=== PATIENT | male | born 1930 | race Caucasian/White ===

== ENCOUNTER 2017-10-07 20:32 | Emergency (ER) | payer MEDICARE, OTHER ==
[2017-10-07 20:55] VITALS: BP 160/84
[2017-10-07] MEDS ORDERED: Sodium Chloride 0.9% 1,000 ML IV SCH (21:00)
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
--- NOTE | 2017-10-08 07:38 | CR ---
Chest: Portable view of the chest was obtained. Comparison: Prior chest x-ray of 12/06/15. Heart size appears within normal limits. Tortuous thoracic aorta is seen. Lung markings are increased which appear stable. No acute infiltrates are seen. Bony structures are osteopenic but grossly intact. Impression: 1. Nothing acute is identified. No significant change is seen from prior study. Diagnostic code #2
== END 2017-10-07 22:40 | disposition home or self-care (01) ==
LOC: JD.ED 20:32
DX: R55 Syncope and collapse (principal); I13.0 Hypertensive heart and chronic kidney disease with heart failure and stage 1 through stage 4 chronic kidney disease, or unspecified chronic kidney disease; E11.22 Type 2 diabetes mellitus with diabetic chronic kidney disease; N18.4 Chronic kidney disease, stage 4 (severe); I50.32 Chronic diastolic (congestive) heart failure; E83.42 Hypomagnesemia; Z79.4 Long term (current) use of insulin; Z79.82 Long term (current) use of aspirin; Z79.899 Other long term (current) drug therapy
CPT/HCPCS: 36415; 71010; 80053; 82962; 83735; 83880; 84443; 84484; 85025; 86140; 93005; 96360; 99284; J7040; 93010

== ENCOUNTER 2018-03-29 09:55 | Emergency (ER) | payer MEDICARE, OTHER ==
--- NOTE | 2018-03-29 10:58 | EDM.PDOC ---
ED HPI GENERAL MEDICAL PROBLEM - General Chief Complaint: ENT Problem Stated Complaint: NOSEBLEED Time Seen by Provider: 03/29/18 10:58 Source of Information: Reports: Patient, Family (spouse) History Limitations: Reports: No Limitations - History of Present Illness INITIAL COMMENTS - FREE TEXT/NARRATIVE: 87-year-old male presents the ED with a very active right-sided nosebleed. He states 2 days ago he had bleeding from the left side that lasted about 20 minutes but he was able to gain control of this with no further bleeding. The right side of the naris started bleeding about 0800 hrs. this morning and has been quite aggressive in spite of packing at home and nasal clamp. He's been clamped nasally here in the ED for half an hour in the bleeding is now come under control. 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 He is subsequently placed on c Coumadin because it is a titanium valve. Last PT/INR was a bit low on March 26. Coumadin dose was increased to 10 mg daily from 6 mg daily. He was spitting up blood this morning as was running down his throat but not at present. Onset: Today Onset Date: 03/29/18 Onset Time: 08:00 Duration: Minutes: Location: Reports: Face (Nosebleed right side) Quality: Reports: Other Severity: Moderate (Nosebleed right side) Improves with: Reports: Other (Has stopped with nasal clamp for 25 minutes.) Worsens with: Reports: None Context: Reports: Other (Spontaneous nosebleed since having valvular heart surgery 10 days ago. First bleeding was from the left side 2 days ago now from the right side this morning. Patient is on Coumadin and the dosages yet to be stabilized.). Denies: Activity, Exercise, Lifting, Sick Contact, Trauma Associated Symptoms: Denies: Confusion, Chest Pain, Cough, cough w sputum, Diaphoresis, Fever/Chills, Headaches, Loss of Appetite, Malaise, Nausea/Vomiting Treatments RUNNING RIGGER: Reports: Other (see below) (None.) - Related Data Allergies Allergy/AdvReac Type Severity Reaction Status Date / Time acetaminophen [From Percocet] AdvReac Other Verified 03/29/18 10:05 oxycodone [From Percocet] AdvReac Other Verified 03/29/18 10:05 Home Meds: Home Meds Levothyroxine 150 mcg PO DAILY 12/06/15 [History] Rosuvastatin [Crestor] 20 mg PO DAILY 12/06/15 [History] Magnesium Chloride [Slow-Mag] 71.5 mg PO DAILY #30 tablet. 10/07/17 [Rx] Clopidogrel [Plavix] 75 mg PO DAILY 03/29/18 [History] Finasteride 5 mg PO DAILY 03/29/18 [History] Furosemide [Lasix] 10 mg PO DAILY 03/29/18 [History] Insulin Glarg,Human.Rec.Analog [Lantus] 20 unit SUBCUT DAILY 03/29/18 [History] Multivitamin [Multivitamins] 1 tab PO DAILY 03/29/18 [History] Pantoprazole Sodium 40 mg PO DAILY 03/29/18 [History] amLODIPine Besylate [Amlodipine Besylate] 5 mg PO BID 03/29/18 [History] Past Medical History HEENT History: Reports: Hard of Hearing, Impaired Vision Other HEENT History: pt wears glasses Cardiovascular History: Reports: Heart Murmur, Hypertension, [place] Genitourinary History: Reports: Other (See Below) Other Genitourinary History: had prostate problems, now has bladder problems Musculoskeletal History: Reports: Osteoarthritis, Osteoporosis Endocrine/Metabolic History: Reports: Diabetes, Type II, Hypothyroidism, Other ( See Below) Other Endocrine/Metabolic History: thyroid issues Dermatologic History: Reports: Cellulitis Other Dermatologic History: current cellulitis to right knee - Infectious Disease History Other Infectious Disease History: patient states he has history of staph infection - Past Surgical History HEENT Surgical History: Reports: Cataract Surgery, Tonsillectomy Cardiovascular Surgical History: Reports: Valve Replacement Social & Family History - Family History Family Medical History: Noncontributory - Tobacco Use Smoking Status *Q: Never Smoker Second Hand Smoke Exposure: No - Alcohol Use Days Per Week of Alcohol Use: 0 (VERY LITTLE) - Recreational Drug Use Recreational Drug Use: No - Living Situation & Occupation Living situation: Reports: 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 Nosebleed left side). Denies: Nose Pain ( 2 days ago for about 20 minutes which he gain control of at home.), Rhinitis, Sinus Problem, Throat Pain, Throat Swelling Respiratory: Reports: Shortness of Breath. Denies: Wheezing, Pleuritic Chest Pain (Only on exertion.), Cough, Sputum Cardiovascular: Reports: Blood Pressure Problem, Dyspnea on Exertion. Denies: Claudication, Edema, Lightheadedness, Orthopnea (Controlled with medication) Endocrine: Reports: No Symptoms GI/Abdominal: Reports: No Symptoms : Reports: Frequency, Other (Known BPH. Nocturia usually 3.) Musculoskeletal: Reports: Joint Pain (Knees hips and lower back at times. Occasionally neck pain.) Skin: Reports: No Symptoms Neurological: Reports: No Symptoms Psychiatric: Reports: No Symptoms Hematologic/Lymphatic: Reports: No Symptoms Immunologic: Reports: No Symptoms ED EXAM, ENT - Physical Exam Exam: See Below Exam Limited By: No Limitations General Appearance: Alert, WD/WN, No Apparent Distress, Other Nose: Other (There is been bleeding from the right naris anterior nasal septum. Source of bleeding identified cauterized with silver nitrate.) Mouth/Throat: Other Head: Atraumatic (Mild blood in the middle of the posterior oropharynx. It appears clotted.), Normocephalic Neck: Normal Inspection. No: Carotid Bruit, Lymphadenopathy (L), Lymphadenopathy (R) Respiratory/Chest: No Respiratory Distress, Lungs Clear, Normal Breath Sounds Cardiovascular: Normal Peripheral Pulses, Regular Rate, Rhythm, No Edema, No Gallop, No Murmur Extremities: Limited Range of Motion (Has a stiff sore back.) Neurological: Alert, Oriented, CN II-XII Intact, Normal Cognition, Normal Gait Psychiatric: Normal Affect, Normal Mood Skin: Pallor (Mild) Course - Vital Signs Last Recorded V/S: Last Vital Signs Temp 36.6 C 03/29/18 10:00 Pulse 69 03/29/18 10:00 Resp 18 03/29/18 10:00 BP Pulse Ox 100 03/29/18 10:00 - Orders/Labs/Meds Labs: Laboratory Tests 03/29/18 03/29/18 Range/Units 11:15 11:15 Hgb 9.9 L (13.7-17.5) gm/L Hct 30.1 L (40.1-51.0) % PT 21.9 H (9.5-12.1) SECONDS INR 2.04 - Radiology Interpretation Free Text/Narrative:: 87-year-old male presents to the ED with an active right-sided nosebleeds since 0800 hrs. this morning. Gain control this with packing and nasal clamp for the last half hour. On my inspection he has active bleeding coming from the right anterior nasal septum. Numerous areas were cauterized with silver nitrate to gain control of the bleeding. PT INR and hemoglobin and hematocrit will be checked today. I will reassess his nosebleed in 10-15 minutes to make sure that it has completely stopped. - Re-Assessments/Exams Free Text/Narrative Re-Assessment/Exam: 03/29/18 11:35: On reinspection of his nose he had one area of bleeding posterior to where it previously cauterized with silver nitrate. There is area was further cauterized with silver nitrate. He is Hemoccult hemoglobin hematocrit in PT/INR results are not yet available. I'm going to discharge him home anyway and I can call with results later. He was supposed to see Dr. Casillas tomorrow in clinic for recheck on his PT/INR he will not need this done now likely until Friday. His current Coumadin dose is not listed in the chart. I will have to speak to the patient. He would need a small increase in dosage to become therapeutic at 2.5-2.7 for valve replacement. It's unclear whether the patient is also on Plavix. 03/29/18 13:15: Normal global and is reported to be low at 9.9 with hematocrit of 30.1. PT today is 21.9 with an INR of 2.04. It is my understanding that he was on 10 mg of Coumadin up until and the dosage was reduced to 6 mg daily. Is due for PT INR tomorrow morning. I will send over the chart to Dr. Casillas so that he can make appropriate adjustments to his Coumadin dose. I instructed them today to stay on 6 mg as per his usual which he takes every evening. Departure - Departure Time of Disposition: 11:41 Disposition: Home, Self-Care 01 Condition: Fair Clinical Impression: Anterior epistaxis, Subtherapeutic international normalized ratio (INR) Anemia Qualifiers: Other causes of anemia: other cause, not classified - Discharge Information Instructions: Nosebleed, Adult, [id number] Referrals: Hilaria Casillas [Primary Care Provider] - Forms: ED Department Discharge Additional Instructions: Evaluation the emergency room this morning in regards to persistent nose bleeding from the right side since 8:00 this morning. Identified source of bleeding to be several blood vessels from the anterior surface of the left nose. This is the nasal septum in the midline. This area was cauterized with silver nitrate in multiple areas to provide stoppage of the bleeding. You're PT INR or Coumadin checkup and hemoglobin and hematocrit were also check today results are not yet available at the time of your discharge. I will therefore call you with the results become available to see if we need to adjust her Coumadin dosage. In the meantime try not to blow your nose or touch her nose in any way for the next 2 days. Rest the use of Polysporin ointment applied to the nasal septum on both sides of your nose at bedtime every night for the next week. Use enough to almost fill the nose up with ointment it starts to melted body temperature any debris. Nose about 10 minutes after application. Of course return to the hospital of active bleeding reoccurs. SPECT that be some snuffles this morning for the next hour or so due to the cauterization process. This may mean of be some pinkish discharge from the right side of your nose also the discharge may look cigarette ashes that's the color of the silver nitrate coming from the nose. This usually stops in about an hour or so after the procedure.
== END 2018-03-29 11:50 | disposition home or self-care (01) ==
LOC: JD.ED 09:55
DX: R04.0 Epistaxis (principal); R79.1 Abnormal coagulation profile; I10 Essential (primary) hypertension; I25.2 Old myocardial infarction; E11.9 Type 2 diabetes mellitus without complications; E03.9 Hypothyroidism, unspecified; Z79.899 Other long term (current) drug therapy; Z88.5 Allergy status to narcotic agent; Z88.6 Allergy status to analgesic agent; Z79.01 Long term (current) use of anticoagulants; Z79.4 Long term (current) use of insulin
CPT/HCPCS: 30901; 36415; 85014; 85018; 85610; 99282-25; 99284-25

== ENCOUNTER 2018-05-04 21:02 | Emergency (ER) | payer MEDICARE, OTHER ==
--- NOTE | 2018-05-05 02:47 | EDM.PDOC ---
ED HPI GENERAL MEDICAL PROBLEM - General Chief Complaint: ENT Problem Stated Complaint: BLOODY NOSE Time Seen by Provider: 05/05/18 01:18 Source of Information: Reports: Patient, RN Notes Reviewed - History of Present Illness INITIAL COMMENTS - FREE TEXT/NARRATIVE: 87-year-old gentleman has been having difficulty with right-sided nosebleed. Started at home about an hour and a half ago. He has continued to have bleeding from the right nares. He was just sitting, resting when this started. No injury to the nose. He is on Coumadin with history of prior heart valve replacement. - Related Data Allergies Allergy/AdvReac Type Severity Reaction Status Date / Time acetaminophen [From Percocet] AdvReac Other Verified 04/08/18 13:57 oxycodone [From Percocet] AdvReac Other Verified 04/08/18 13:57 Home Meds: Home Meds Levothyroxine 150 mcg PO DAILY 12/06/15 [History] Rosuvastatin [Crestor] 20 mg PO DAILY 12/06/15 [History] Magnesium Chloride [Slow-Mag] 71.5 mg PO DAILY #30 tablet. 10/07/17 [Rx] Finasteride 5 mg PO DAILY 03/29/18 [History] Furosemide [Lasix] 10 mg PO DAILY 03/29/18 [History] Insulin Glarg,Human.Rec.Analog [Lantus] 20 unit SUBCUT DAILY 03/29/18 [History] Multivitamin [Multivitamins] 1 tab PO DAILY 03/29/18 [History] Pantoprazole Sodium 40 mg PO DAILY 03/29/18 [History] amLODIPine Besylate [Amlodipine Besylate] 5 mg PO BID 03/29/18 [History] Past Medical History HEENT History: Reports: Hard of Hearing, Impaired Vision Other HEENT History: pt wears glasses Cardiovascular History: Reports: Heart Murmur, Hypertension, [place] Genitourinary History: Reports: Other (See Below) Other Genitourinary History: had prostate problems, now has bladder problems Musculoskeletal History: Reports: Osteoarthritis, Osteoporosis Endocrine/Metabolic History: Reports: Diabetes, Type II, Hypothyroidism, Other ( See Below) Other Endocrine/Metabolic History: thyroid issues Dermatologic History: Reports: Cellulitis Other Dermatologic History: current cellulitis to right knee - Infectious Disease History Other Infectious Disease History: patient states he has history of staph infection - Past Surgical History HEENT Surgical History: Reports: Cataract Surgery, Tonsillectomy Cardiovascular Surgical History: Reports: Valve Replacement Social & Family History - Family History Family Medical History: Noncontributory - Living Situation & Occupation Living situation: Reports: Occupation: Retired ED ROS ENT - Review of Systems Review Of Systems: See Below Constitutional: Reports: No Symptoms HEENT: Reports: Nosebleed Respiratory: Denies: Shortness of Breath Cardiovascular: Denies: Chest Pain GI/Abdominal: Denies: Abdominal Pain, Nausea, Vomiting Musculoskeletal: Reports: No Symptoms Skin: Reports: No Symptoms Neurological: Reports: No Symptoms ED EXAM, ENT - Physical Exam Exam: See Below Exam Limited By: No Limitations General Appearance: Alert, No Apparent Distress Eye Exam: Bilateral Eye: PERRL Nose: Active Bleeding (Right nares when pressure released, small bleeder visualized right anterior nasal septum) Mouth/Throat: Other (He does have a small clot posterior pharynx) Head: Atraumatic Respiratory/Chest: No Respiratory Distress, Lungs Clear Cardiovascular: Regular Rate, Rhythm Extremities: Normal Inspection, Normal Range of Motion Neurological: Alert, Oriented, No Motor/Sensory Deficits Skin: Warm, Dry, Normal Color Course - Re-Assessments/Exams Free Text/Narrative Re-Assessment/Exam: 05/05/18 02:46 Patient was treated with cocaine solution right nares, continued pressure. the bleeding slowed but did not stop. It was cauterized with silver nitrate with no further bleeding Departure - Departure Time of Disposition: 23:15 Disposition: Home, Self-Care 01 Clinical Impression: Epistaxis - Discharge Information Referrals: Hilaria Casillas [Primary Care Provider] - Forms: ED Department Discharge
[2018-05-05 03:22] VITALS: BP 140/60
== END 2018-05-05 00:12 | disposition home or self-care (01) ==
LOC: JD.ED 21:02
DX: R04.0 Epistaxis (principal); I10 Essential (primary) hypertension; I25.2 Old myocardial infarction; E11.9 Type 2 diabetes mellitus without complications; E03.9 Hypothyroidism, unspecified; Z88.5 Allergy status to narcotic agent; Z88.6 Allergy status to analgesic agent; Z79.899 Other long term (current) drug therapy; Z79.4 Long term (current) use of insulin
CPT/HCPCS: 30901; 36415; 85610; 99282-25; 99283-25

== ENCOUNTER 2019-03-24 20:05 | Emergency (ER) | payer MEDICARE, OTHER ==
[2019-03-24 20:19] VITALS: BP 180/86
--- NOTE | 2019-03-24 20:44 | EDM.PDOC ---
ED HPI GENERAL MEDICAL PROBLEM - General Chief Complaint: Neck Problem Stated Complaint: FEVER NECK PAIN Time Seen by Provider: 03/24/19 20:15 Source of Information: Reports: Patient History Limitations: Reports: No Limitations - History of Present Illness INITIAL COMMENTS - FREE TEXT/NARRATIVE: 88 y/o male presents to ER with cc neck pain. He states 3 weeks ago he stripped and fell landing on his face since then he has had neck pain. He has been going to the chiropractor but stopped going a week ago. He took 2 aspirin today for the pain. He states the pain increases with movement. He denies headache, blurred vision, nausea or vomiting. He is currently taking Plavix. He is accompanied by his son and . Onset Date: 03/03/19 Onset Time: 12:00 Duration: Getting Worse, Intermittent Location: Reports: Neck Quality: Reports: Ache Severity: Mild Improves with: Reports: None Worsens with: Reports: Movement Associated Symptoms: Denies: Confusion, Chest Pain, Cough, Fever/Chills, Nausea/ Vomiting, Shortness of Breath, Weakness Neck Pain Score (Numeric/FACES): 8 - Related Data Allergies Allergy/AdvReac Type Severity Reaction Status Date / Time acetaminophen [From Percocet] AdvReac Other Verified 03/24/19 20:19 oxycodone [From Percocet] AdvReac Other Verified 03/24/19 20:19 Home Meds: Home Meds Levothyroxine 150 mcg PO DAILY 12/06/15 [History] Rosuvastatin [Crestor] 20 mg PO DAILY 12/06/15 [History] Insulin Glarg,Human.Rec.Analog [Lantus] 24 unit SUBCUT BID 03/29/18 [History] Multivitamin [Multivitamins] 1 tab PO DAILY 03/29/18 [History] Pantoprazole Sodium 40 mg PO DAILY 03/29/18 [History] Baclofen 10 mg PO BID PRN 5 Days #10 tablet 03/24/19 [Rx] Clopidogrel [Plavix] 75 mg pe PO DAILY 03/24/19 [History] Past Medical History HEENT History: Reports: Hard of Hearing, Impaired Vision Other HEENT History: pt wears glasses Cardiovascular History: Reports: Heart Murmur, Hypertension, [place] Genitourinary History: Reports: Other (See Below) Other Genitourinary History: had prostate problems, now has bladder problems Musculoskeletal History: Reports: Osteoarthritis, Osteoporosis Endocrine/Metabolic History: Reports: Diabetes, Type II, Hypothyroidism, Other ( See Below) Other Endocrine/Metabolic History: thyroid issues Dermatologic History: Reports: Cellulitis Other Dermatologic History: current cellulitis to right knee - Infectious Disease History Other Infectious Disease History: patient states he has history of staph infection - Past Surgical History HEENT Surgical History: Reports: Cataract Surgery, Tonsillectomy Cardiovascular Surgical History: Reports: Valve Replacement Social & Family History - Family History Family Medical History: Noncontributory - Tobacco Use Smoking Status *Q: Never Smoker Second Hand Smoke Exposure: No - Caffeine Use Caffeine Use: Reports: None - Recreational Drug Use Recreational Drug Use: No - Living Situation & Occupation Living situation: Reports: 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: Retired ED ROS GENERAL - Review of Systems Review Of Systems: See Below Constitutional: Denies: Fever, Chills HEENT: Reports: Glasses Respiratory: Reports: No Symptoms Cardiovascular: Reports: No Symptoms Endocrine: Reports: No Symptoms GI/Abdominal: Reports: No Symptoms : Reports: No Symptoms Musculoskeletal: Reports: Neck Pain Skin: Reports: No Symptoms Neurological: Denies: Confusion, Dizziness, Syncope, Weakness Psychiatric: Reports: No Symptoms Hematologic/Lymphatic: Reports: No Symptoms Immunologic: Reports: No Symptoms ED EXAM, UPPER BACK/NECK PAIN - Physical Exam Exam: See Below Exam Limited By: No Limitations General Appearance: Alert, WD/WN, No Apparent Distress Eye Exam: Bilateral Eye: EOMI, PERRL Head Exam: Atraumatic, Normocephalic Neck Exam: Limited Range of Motion (due to pain), Painful Range of Motion Nexus Criteria: No: Posterior, Midline Cervical Tenderness Cardiovascular/Respiratory: Regular Rate, Rhythm, No M/R/G, Normal Peripheral Pulses, No JVD, Normal Breath Sounds, No Respiratory Distress, JVD Back Exam: Normal Inspection, Full Range of Motion Neurologic: elevator repairer II-XII nml As Tested, Alert, Normal Mood/Affect, Oriented x 3 Psychiatric: Normal Affect, Normal Mood Skin Exam: Normal Color, Warm/Dry Lymphatic: No Adenopathy Course - Vital Signs Last Recorded V/S: Last Vital Signs Temp 99.4 F 03/24/19 20:14 Pulse 107 H 03/24/19 20:14 Resp 13 03/24/19 20:14 BP 180/86 H 03/24/19 20:14 Pulse Ox 94 L 03/24/19 20:14 - Orders/Labs/Meds Orders: Active Orders 24 hr Category Date Time Status Cervical Spine wo Cont [CT] Stat Exams 03/24/19 20:33 Taken Meds: Medications Discontinued Medications Generic Name Dose Route Start Last Admin Trade Name Freq PRN Reason Stop Dose Admin Tramadol HCl 50 mg 03/24/19 20:40 03/24/19 20:57 Ultram PO 03/24/19 20:41 50 mg ONETIME ONE Administration - Re-Assessments/Exams Free Text/Narrative Re-Assessment/Exam: 03/24/19 21:38 88 y/o male presents to ER with cc neck pain for the past 3 weeks after falling on his face. His CT of his neck revealed mild disc space narrowing is noted at C2-3. Mild posterior disc bulge noted at C3-4. Minimal spondylolisthesis by several millimeters is noted at C4-5 due to degenerative apophyseal change. Severe disc space narrowing is noted at C5-6 with posterior osteophytes. Severe disc space narrowing is noted at C6-7. Moderate bilateral neural foraminal stenosis noted at C5-6. Mild right-sided neural foraminal stenosis is noted C6-C7. Other neural foramina felt to be patient. No central canal stenosis is seen. Ligamentum nuchal calcification is seen. Scattered degenerative apophyseal change is seen throughout the cervical spine. No acute fracture is seen. I will discharge with Baclofen for muscle strain. I instructed him not to take this medication and drink, drive or operate machinery while taking this medication. Patient and family verbalized understanding and are comfortable with plan for discharge. Instructed to return to ER for any new or acute worsening symptoms. Patient is stable at time of discharge. Departure - Departure Time of Disposition: 21:44 Disposition: Home, Self-Care 01 Condition: Good Clinical Impression: Cervical radiculopathy - Discharge Information Prescriptions: Baclofen 10 mg PO BID PRN 5 Days #10 tablet PRN Reason: neck muscle strain Referrals: Tucker Angel PA-C [Primary Care Provider] - Forms: ED Department Discharge Additional Instructions: You have been diagnosis with neck muscle strain. Your neck CT revealed no fracture or dislocation. You have been prescribed Baclofen for muscle spasms or strain. Do not take this mediation and drink, drive or operate machinery. Follow up with your PCP. Return to the ER for any new or acute worsening symptoms. - My Orders Last 24 Hours: My Active Orders 03/24/19 20:33 Cervical Spine wo Cont [CT] Stat - Assessment/Plan Last 24 Hours: My Active Orders 03/24/19 20:33 Cervical Spine wo Cont [CT] Stat
[2019-03-24] MEDS: traMADol 50 MG Tab PO ONE (20:57)
--- NOTE | 2019-03-25 06:10 | CT ---
CT cervical spine Technique: Multiple axial sections through the cervical spine were obtained from above C1 inferiorly to the bottom of T2. Reconstructed sagittal and coronal images were reviewed. Comparison: No prior cervical spine imaging is available. Findings: Degenerative change is noted between the dens and anterior arch of C1. Calcification is seen within the transverse ligament posterior to the dens of C2 which is degenerative in etiology. Mild disc space narrowing is noted at C2-3. Mild posterior disc bulge noted at C3-4. Minimal spondylolisthesis by several millimeters is noted at C4-5 due to degenerative apophyseal change. Severe disc space narrowing is noted at C5-6 with posterior osteophytes. Severe disc space narrowing is noted at C6-7. Moderate bilateral neural foraminal stenosis noted at C5-6. Mild right-sided neural foraminal stenosis is noted C6-7. Other neural foramina felt to be patent. No central canal stenosis is seen. Ligamentum nuchal calcification is seen. Scattered degenerative apophyseal change is seen throughout the cervical spine. No acute fracture is seen. Degenerative spurring is noted within the uncovertebral joints at C5-6 and C6-7. Impression: 1. Degenerative change as noted above. 2. Nothing acute is seen on CT study of the cervical spine. Diagnostic code #3
== END 2019-03-24 21:55 | disposition home or self-care (01) ==
LOC: JD.ED 20:05
DX: M54.12 Radiculopathy, cervical region (principal); I10 Essential (primary) hypertension; I25.2 Old myocardial infarction; E11.9 Type 2 diabetes mellitus without complications; E03.9 Hypothyroidism, unspecified; M19.90 Unspecified osteoarthritis, unspecified site; Z79.4 Long term (current) use of insulin; Z79.899 Other long term (current) drug therapy; Z98.49 Cataract extraction status, unspecified eye; Z98.890 Other specified postprocedural states; Z88.6 Allergy status to analgesic agent
CPT/HCPCS: 72125; 99283; A9270

== ENCOUNTER 2019-04-07 19:11 | Emergency (ER) | payer MEDICARE, OTHER ==
[2019-04-07 19:29] VITALS: BP 159/77
[2019-04-07] MEDS ORDERED: Doxycycline 100 MG Cap PO ONE (19:46)
[2019-04-07] MEDS ORDERED: Clindamycin HCl 150 MG Cap PO ONE (19:46)
--- NOTE | 2019-04-07 19:48 | EDM.PDOC ---
ED HPI GENERAL MEDICAL PROBLEM - General Chief Complaint: Upper Extremity Injury/Pain Stated Complaint: INFECTION IN HAND Time Seen by Provider: 04/07/19 19:31 Source of Information: Reports: Patient, Family History Limitations: Reports: No Limitations - History of Present Illness INITIAL COMMENTS - FREE TEXT/NARRATIVE: 88 yo M comes to the ED for worsening right hand pain after cutting it on Friday , was seen in clinic yesterday and put on antibiotics. He states the antibiotics initially made him feel better, but this morning it started to get worse with increased pain, redness, warmth and swelling. He does not have a known h/o MRSA. Family states they were told by clinic they would call if culture was positive for MRSA, but they haven't heard anything yet. He thinks the antibiotic he was started on was Keflex. He denies any F/C, N/V/D, or any other symptoms at this time. Right Hand Pain Score (Numeric/FACES): 6 - Related Data Allergies Allergy/AdvReac Type Severity Reaction Status Date / Time acetaminophen [From Percocet] AdvReac Other Verified 04/07/19 19:19 oxycodone [From Percocet] AdvReac Other Verified 04/07/19 19:19 Home Meds: Home Meds Levothyroxine 150 mcg PO DAILY 12/06/15 [History] Rosuvastatin [Crestor] 20 mg PO DAILY 12/06/15 [History] Insulin Glarg,Human.Rec.Analog [Lantus] 24 unit SUBCUT BID 03/29/18 [History] Multivitamin [Multivitamins] 1 tab PO DAILY 03/29/18 [History] Pantoprazole Sodium 40 mg PO DAILY 03/29/18 [History] Cephalexin [Keflex] 1 tab PO QID 04/07/19 [History] Clindamycin HCl 300 mg PO TID 7 Days #21 capsule 04/07/19 [Rx] Doxycycline [Vibramycin] 100 mg PO BID 12 Days #24 cap 04/07/19 [Rx] Past Medical History HEENT History: Reports: Hard of Hearing, Impaired Vision Other HEENT History: pt wears glasses Cardiovascular History: Reports: Heart Murmur, Hypertension, [place] Respiratory History: Reports: None Gastrointestinal History: Reports: GERD Genitourinary History: Reports: Other (See Below) Other Genitourinary History: had prostate problems, now has bladder problems Musculoskeletal History: Reports: Osteoarthritis, Osteoporosis Neurological History: Reports: None Psychiatric History: Reports: None Endocrine/Metabolic History: Reports: Diabetes, Type II, Hypothyroidism, Other ( See Below) Other Endocrine/Metabolic History: thyroid issues Hematologic History: Reports: None Immunologic History: Reports: None Oncologic (Cancer) History: Reports: None Dermatologic History: Reports: Cellulitis Other Dermatologic History: current cellulitis to right knee - Infectious Disease History Infectious Disease History: Reports: None Other Infectious Disease History: patient states he has history of staph infection - Past Surgical History HEENT Surgical History: Reports: Cataract Surgery, Tonsillectomy Cardiovascular Surgical History: Reports: Valve Replacement Social & Family History - Family History Family Medical History: Noncontributory - Tobacco Use Smoking Status *Q: Never Smoker - Caffeine Use Caffeine Use: Reports: Coffee - Recreational Drug Use Recreational Drug Use: No - Living Situation & Occupation Living situation: Reports: Occupation: Retired Review of Systems - Review of Systems Review Of Systems: ROS reveals no pertinent complaints other than HPI. ED EXAM, GENERAL - Physical Exam Exam: See Below Exam Limited By: No Limitations General Appearance: Alert, WD/WN, No Apparent Distress Eye Exam: Bilateral Eye: Normal Inspection Ears: Normal External Exam, Hearing Grossly Normal Respiratory/Chest: No Respiratory Distress, Lungs Clear, Normal Breath Sounds Cardiovascular: Normal Peripheral Pulses, Regular Rate, Rhythm Peripheral Pulses: 3+: Brachial (L), Brachial (R) Extremities: Normal Capillary Refill, Joint Swelling (R hand swelling of various fingers), Limited Range of Motion (R hand d/t swelling), Increased Warmth (R hand), Redness (R hand) Neurological: Alert, Oriented, CN II-XII Intact, Normal Cognition, Normal Gait, Normal Reflexes, No Motor/Sensory Deficits Psychiatric: Normal Affect, Normal Mood Skin Exam: Warm, Dry, Intact, Erythema (R hand), Increased Warmth (R hand), Wound/Incision (healed; R fifth digit) Course - Vital Signs Last Recorded V/S: Last Vital Signs Temp 98.3 F 04/07/19 19:27 Pulse 77 04/07/19 19:27 Resp 14 04/07/19 19:27 BP 159/77 H 04/07/19 19:27 Pulse Ox 96 04/07/19 19:27 - Orders/Labs/Meds Meds: Medications Discontinued Medications Generic Name Dose Route Start Last Admin Trade Name Etelvina PRN Reason Stop Dose Admin Clindamycin HCl 300 mg 04/07/19 19:46 04/07/19 19:56 Cleocin PO 04/07/19 19:47 300 mg ONETIME ONE Administration Doxycycline Hyclate 200 mg 04/07/19 19:46 04/07/19 19:56 Vibramycin PO 04/07/19 19:47 200 mg ONETIME ONE Administration Departure - Departure Time of Disposition: 19:43 Disposition: Home, Self-Care 01 Condition: Fair Clinical Impression: Cellulitis of hand - Discharge Information *PRESCRIPTION DRUG MONITORING PROGRAM REVIEWED*: Not Applicable *COPY OF PRESCRIPTION DRUG MONITORING REPORT IN PATIENT SVEN: Not Applicable Prescriptions: Clindamycin HCl 300 mg PO TID 7 Days #21 capsule Doxycycline [Vibramycin] 100 mg PO BID 12 Days #24 cap Instructions: Cellulitis, Adult, [id number] Referrals: Tucker Angel PA-C [Primary Care Provider] - Forms: ED Department Discharge Additional Instructions: You were seen in the ED today for worsening right hand infection. Xray not deemed necessary at this time as you had good movement of your hand yesterday, difficulty today likely due to swelling. You were started on antibiotics yesterday at the clinic, started to feel better, but then your symptoms got worse. At this time, it is likely that the antibiotic you were given does not cover the organism responsible for the infection. Therefore, will start you on two antibiotics to cover for multiple organisms including MRSA. You will be started on them here. Take Doxycycline twice per day for 12 days and Clindamycin three times per day for 7 days. Recommend follow up with your primary care doctor. Please return to ED if new or worsening symptoms.
== END 2019-04-07 20:14 | disposition home or self-care (01) ==
LOC: JD.ED 19:11
DX: L03.113 Cellulitis of right upper limb (principal); I10 Essential (primary) hypertension; I25.2 Old myocardial infarction; K21.9 Gastro-esophageal reflux disease without esophagitis; E11.9 Type 2 diabetes mellitus without complications; E03.9 Hypothyroidism, unspecified; Z88.5 Allergy status to narcotic agent; Z79.899 Other long term (current) drug therapy; Z79.4 Long term (current) use of insulin
CPT/HCPCS: 99283; A9270

== ENCOUNTER 2020-05-28 07:30 | Emergency (ER) | payer MEDICARE, OTHER ==
[2020-05-28 07:44] VITALS: BP 125/58; PULSE 104
--- NOTE | 2020-05-28 07:55 | EDM.PDOC ---
ED HPI GENERAL MEDICAL PROBLEM - General Chief Complaint: General Stated Complaint: COLD AND THROWING UP Time Seen by Provider: 05/28/20 07:52 Source of Information: Reports: Patient, Family (Brought him to the hospital.) History Limitations: Reports: No Limitations - History of Present Illness INITIAL COMMENTS - FREE TEXT/NARRATIVE: 89-year-old male attends the ED with acute onset of Rigors and chills this morning followed by emesis x1. Occurred about 0700 hrs. as he had gotten up for the day. Emesis was orange bile-like material. He is only had a little water so far today. States he feels better since he vomited. Patient states he is got a mild cough but not much sputum being produced. Denies any abdominal pain. Nausea is better since he vomited. Of note the patient self caths at least twice daily for many years due to neurogenic bladder. Is any dysuria urgency or frequency. Has had previous UTIs. Of note the patient is a type II diabetic using insulin for control. Onset: Today, Sudden Onset Date: 05/28/20 Onset Time: 07:00 Duration: Minutes: Location: Reports: Generalized (Acute onset of fever with chills and the shakes. Vomiting x1.) Quality: Reports: Other Severity: Moderate (Rigors.) Improves with: Reports: Other (Is better after vomiting.) Worsens with: Reports: None Context: Reports: Other (Spontaneous onset of illness this morning about 0700 hrs.). Denies: Activity, Exercise, Lifting, Sick Contact, Trauma Associated Symptoms: Reports: Cough, cough w sputum (No worse than usual.), Diaphoresis (He was diaphoretic at the time of vomiting.), Fever/Chills ([place] this morning with the shakes), Nausea/Vomiting (Is 1 of a orange each bile material.), Weakness. Denies: Confusion, Chest Pain, Headaches, Loss of Appetite, Malaise, Rash, Seizure, Shortness of Breath, Syncope Treatments [employer]: Reports: Other (see below) (None.) - Related Data Allergies Allergy/AdvReac Type Severity Reaction Status Date / Time acetaminophen [From Percocet] AdvReac Severe Other Verified 05/28/20 07:45 oxycodone [From Percocet] AdvReac Severe Other Verified 05/28/20 07:45 Home Meds: Home Meds Levothyroxine 150 mcg PO DAILY 12/06/15 [History] Rosuvastatin [Crestor] 20 mg PO DAILY 12/06/15 [History] Insulin Glarg,Human.Rec.Analog [Lantus] 24 unit SUBCUT BID 03/29/18 [History] Multivitamin [Multivitamins] 1 tab PO DAILY 03/29/18 [History] Pantoprazole Sodium 40 mg PO DAILY 03/29/18 [History] Clindamycin HCl 300 mg PO TID 7 Days #21 capsule 04/07/19 [Rx] Doxycycline [Vibramycin] 100 mg PO BID 12 Days #24 cap 04/07/19 [Rx] cephALEXin [Keflex] 1 tab PO QID 04/07/19 [History] Cefdinir [Omnicef] 300 mg PO BID #20 cap 05/28/20 [Rx] Past Medical History HEENT History: Reports: Hard of Hearing, Impaired Vision Other HEENT History: pt wears glasses Cardiovascular History: Reports: Heart Failure, Heart Murmur (Has had previous aortic valve repair in [place] and is known to have mitral insufficiency as well. Still has significant aortic stenosis.), High Cholesterol, Hypertension, NE, SOB on Exertion, Other (See Below) (Patient went to [place] and had a aortic valvuplasty. He has a mitral insufficiency murmur as well.). Denies: Pacemaker Respiratory History: Reports: None Gastrointestinal History: Reports: GERD Genitourinary History: Reports: Other (See Below) Other Genitourinary History: had prostate problems, now has bladder problems. Has a neurogenic bladder and self caths usually twice daily. Musculoskeletal History: Reports: Osteoarthritis, Osteoporosis Neurological History: Reports: None Psychiatric History: Reports: None Endocrine/Metabolic History: Reports: Diabetes, Type II, Hypothyroidism, Other (See Below) Other Endocrine/Metabolic History: thyroid issues Hematologic History: Reports: None Immunologic History: Reports: None Oncologic (Cancer) History: Reports: None Dermatologic History: Reports: Cellulitis Other Dermatologic History: current cellulitis to right knee - Infectious Disease History Infectious Disease History: Reports: None Other Infectious Disease History: patient states he has history of staph infection - Past Surgical History HEENT Surgical History: Reports: Cataract Surgery, Tonsillectomy Cardiovascular Surgical History: Reports: Valve Replacement Social & Family History - Family History Family Medical History: Noncontributory - Tobacco Use Smoking Status *Q: Never Smoker - Caffeine Use Caffeine Use: Reports: Coffee - Living Situation & Occupation Living situation: Reports: Occupation: Retired ED ROS GENERAL - Review of Systems Review Of Systems: See Below Constitutional: Reports: Fever, Chills, Malaise, Weakness, Fatigue, Diaphoresis (Vomiting this morning), Decreased Appetite. Denies: Weight Loss HEENT: Reports: Glasses, Other (Macular degeneration) Respiratory: Denies: Shortness of Breath, Wheezing, Pleuritic Chest Pain, Cough, Sputum, Hemoptysis Cardiovascular: Reports: Blood Pressure Problem, Dyspnea on Exertion, Edema (Left leg chronically), Palpitations. Denies: Chest Pain, Claudication, Lightheadedness, Orthopnea Endocrine: Reports: Fatigue (Relief.) GI/Abdominal: Reports: Constipation, Nausea, Vomiting (Did once this morning of the orangey yellowish bile material.) : Reports: Other (Has a neurogenic bladder and self catheterizes 2 or 3 times daily. Usually morning and bedtime) Musculoskeletal: Reports: Back Pain, Joint Pain (He sips back neck at times) Skin: Reports: Bruising (Easily as he is on aspirin.) Neurological: Reports: Difficulty Walking (Due to weakness in his legs and some peripheral neuropathy.). Denies: Confusion, Dizziness, Headache, Numbness, Paresthesia, Pre-Existing Deficit, Syncope, Tingling, Tremors, Trouble Speaking, Weakness, Change in Speech, Gait Disturbance Psychiatric: Reports: No Symptoms Hematologic/Lymphatic: Reports: No Symptoms Immunologic: Reports: No Symptoms ED EXAM, GENERAL - Physical Exam Exam: See Below Exam Limited By: No Limitations General Appearance: Alert, WD/WN, No Apparent Distress, Other ( reports his color looks back to normal. Vital signs show a temperature of 36.5 which is likely incorrect. Heart rate 104 and sinus respiratory of 18 O2 sats of 93% on room air. BP is 125/58.) Eye Exam: Bilateral Eye: Normal Inspection, PERRL Throat/Mouth: Normal Inspection, Normal Lips, Normal Oropharynx, Other Head: Atraumatic (Tongue is moist.), Normocephalic Neck: Normal Inspection, Carotid Bruit (Referred from aortic stenosis murmur.), Limited Range of Motion, Tender Lateral (No JVD sides of the neck are tender to touch.), Other. No: Full Range of Motion, Lymphadenopathy (L), Lymphadenopathy (R), Tender Midline, Thyromegaly Respiratory/Chest: No Accessory Muscle Use, Respiratory Distress (Mild tachypnea at rest.), Decreased Breath Sounds (Sounds are minimally decreased to the lower 25% lung meza bilaterally.), Rales (Basis.). No: Lungs Clear, Normal Breath Sounds Cardiovascular: Normal Peripheral Pulses, Regular Rate, Rhythm, No Gallop, Systolic Murmur (Holosystolic murmur best heard at the left lower sternal border compatible with aortic stenosis as it is referred up into the right carotid artery. There is also a systolic murmur that radiates towards the right axilla suggestive of mitral insufficiency both would be graded as 2 out of 6.). No: No Edema Peripheral Pulses: 2+: Posterior Tibial (L), Posterior Tibial (R), Dorsalis Pedis (L), Dorsalis Pedis (R), 3+: Carotid (L), Carotid (R) GI/Abdominal: Normal Bowel Sounds, Soft, Non-Tender, No Organomegaly, No Abnormal Bruit, No Mass, Other (No surgical scars) (Male) Exam: No Hernia Back Exam: Normal Inspection, Full Range of Motion. No: CVA Tenderness (L), CVA Tenderness (R) Extremities: Pedal Edema (2+ pitting edema left lower extremity to the tibial tuberosity. He states it is been like that for years.) Neurological: Alert, Oriented, CN II-XII Intact, Normal Cognition. No: Normal Gait Psychiatric: Normal Affect, Normal Mood Skin Exam: Warm, Dry, Intact, Normal Color, No Rash, Other (Feels warm as he appears to be developing a fever.) EKG INTERPRETATION EKG Date: 05/28/20 Time: 07:56 Rhythm: NSR Rate (Beats/Min): 82 [place]: LAD-Left [place] Deviation (-54 degrees) P-Wave: Present (Degree AV block) QRS: Other (Normal R wave progression with early transition consider septal hypertrophy pattern. Q waves V1 and near Q wave in V3. 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 Q waves 2 3 and aVF suggesting old inferior wall myocardial infarction.) ST-T: Elevated (Mild ST segment elevation in V2 alone.) QT: Normal EKG Interpretation Comments: Abnormal ECG Course - Vital Signs Last Recorded V/S: Last Vital Signs Temp 36.5 C 05/28/20 07:39 Pulse 104 H 05/28/20 07:39 Resp 18 05/28/20 07:39 BP 125/58 L 05/28/20 07:39 Pulse Ox 93 L 05/28/20 07:39 - Orders/Labs/Meds Orders: Active Orders 24 hr Category Date Time Status EKG Documentation Completion [RC] STAT Care 05/28/20 07:53 Active Chest 1V Frontal [CR] Stat Exams 05/28/20 07:53 Taken CULTURE BLOOD [BC] Stat Lab 05/28/20 08:22 Received CULTURE BLOOD [BC] Stat Lab 05/28/20 08:30 Received CULTURE URINE [RM] Stat Lab 05/28/20 10:15 Received Blood Culture x2 Reflex Set [OM.PC] Stat Oth 05/28/20 07:53 Ordered Labs: Laboratory Tests 05/28/20 05/28/20 05/28/20 Range/Units 08:22 08:22 08:22 WBC 10.25 H (4.23-9.07) K/mm3 RBC 3.79 L (4.63-6.08) M/mm3 Hgb 11.3 L (13.7-17.5) gm/dl Hct 34.7 L (40.1-51.0) % MCV 91.6 (79.0-92.2) fl MCH 29.8 (25.7-32.2) pg MCHC 32.6 (32.2-35.5) g/dl RDW Std Deviation 44.1 H (35.1-43.9) fL Plt Count 133 L D (163-337) K/mm3 MPV 11.0 (9.4-12.3) fl Neutrophils % (Manual) 91 H (40-60) % Band Neutrophils % 0 (0-10) % Lymphocytes % (Manual) 7 L (20-40) % Atypical Lymphs % 0 % Monocytes % (Manual) 2 (2-10) % Eosinophils % (Manual) 0 L (0.8-7.0) % Basophils % (Manual) 0 L (0.2-1.2) Toxic Granulation 2+ moderate Platelet Estimate Adequate Plt Morphology Comment Normal Anisocytosis 1+ slight RBC Morph Comment Not Reportable PT 11.6 (9.7-12.0) SECONDS INR 1.07 APTT 24 (22-31) SECONDS Sodium 138 (136-145) mEq/L Potassium 4.9 (3.5-5.1) mEq/L Chloride 102 (98-107) mEq/L Carbon Dioxide 26 (21-32) mEq/L Anion Gap 14.9 (5-15) BUN 36 H (7-18) mg/dL Creatinine 2.1 H (0.7-1.3) mg/dL Est Cr Clr Drug Dosing 22.36 mL/min Estimated GFR (MDRD) 30 (>60) mL/min BUN/Creatinine Ratio 17.1 (14-18) Glucose 113 (83-115) mg/dL Lactic Acid (0.4-2.0) mmol/L Calcium 9.0 (8.5-10.1) mg/dL Magnesium 1.9 (1.8-2.4) mg/dl Total Bilirubin 1.0 (0.2-1.0) mg/dL AST 23 (15-37) U/L ALT 25 (16-63) U/L Alkaline Phosphatase 82 (46-116) U/L Troponin I < 0.017 (0.00-0.056) ng/mL C-Reactive Protein 0.2 (<1.0) mg/dL Total Protein 7.2 (6.4-8.2) g/dl Albumin 3.7 (3.4-5.0) g/dl Globulin 3.5 gm/dL Albumin/Globulin Ratio 1.1 (1-2) Urine Color (Yellow) Urine Appearance (Clear) Urine pH (5.0-8.0) Ur Specific [place] (1.005-1.030) Urine Protein (Negative) Urine Glucose (UA) (Negative) Urine Ketones (Negative) Urine Occult Blood (Negative) Urine Nitrite (Negative) Urine Bilirubin (Negative) Urine Urobilinogen (0.2-1.0) Ur Leukocyte Esterase (Negative) Urine RBC (0-5) /hpf Urine WBC (0-5) /hpf Ur Squamous Epith Cells (0-5) /hpf Urine Bacteria (FEW) /hpf Urine Mucus (FEW) /hpf SARS-CoV-2 RNA (RT-PCR) (NEGATIVE) 05/28/20 05/28/20 05/28/20 Range/Units 08:22 08:53 10:15 WBC (4.23-9.07) K/mm3 RBC (4.63-6.08) M/mm3 Hgb (13.7-17.5) gm/dl Hct (40.1-51.0) % MCV (79.0-92.2) fl MCH (25.7-32.2) pg MCHC (32.2-35.5) g/dl RDW Std Deviation (35.1-43.9) fL Plt Count (163-337) K/mm3 MPV (9.4-12.3) fl Neutrophils % (Manual) (40-60) % Band Neutrophils % (0-10) % Lymphocytes % (Manual) (20-40) % Atypical Lymphs % % Monocytes % (Manual) (2-10) % Eosinophils % (Manual) (0.8-7.0) % Basophils % (Manual) (0.2-1.2) Toxic Granulation Platelet Estimate Plt Morphology Comment Anisocytosis RBC Morph Comment PT (9.7-12.0) SECONDS INR APTT (22-31) SECONDS Sodium (136-145) mEq/L Potassium (3.5-5.1) mEq/L Chloride (98-107) mEq/L Carbon Dioxide (21-32) mEq/L Anion Gap (5-15) BUN (7-18) mg/dL Creatinine (0.7-1.3) mg/dL Est Cr Clr Drug Dosing mL/min Estimated GFR (MDRD) (>60) mL/min BUN/Creatinine Ratio (14-18) Glucose (83-115) mg/dL Lactic Acid 1.2 (0.4-2.0) mmol/L Calcium (8.5-10.1) mg/dL Magnesium (1.8-2.4) mg/dl Total Bilirubin (0.2-1.0) mg/dL AST (15-37) U/L ALT (16-63) U/L Alkaline Phosphatase (46-116) U/L Troponin I (0.00-0.056) ng/mL C-Reactive Protein (<1.0) mg/dL Total Protein (6.4-8.2) g/dl Albumin (3.4-5.0) g/dl Globulin gm/dL Albumin/Globulin Ratio (1-2) Urine Color Light yellow (Yellow) Urine Appearance Turbid H (Clear) Urine pH 6.0 (5.0-8.0) Ur Specific [place] > or = 1.030 (1.005-1.030) Urine Protein 3+ H (Negative) Urine Glucose (UA) Negative (Negative) Urine Ketones Negative (Negative) Urine Occult Blood 3+ H (Negative) Urine Nitrite Negative (Negative) Urine Bilirubin Negative (Negative) Urine Urobilinogen 0.2 (0.2-1.0) Ur Leukocyte Esterase 3+ H (Negative) Urine RBC 5-10 H (0-5) /hpf Urine WBC >100 H (0-5) /hpf Ur Squamous Epith Cells 0-5 (0-5) /hpf Urine Bacteria Few (FEW) /hpf Urine Mucus Not seen (FEW) /hpf SARS-CoV-2 RNA (RT-PCR) Negative (NEGATIVE) Meds: Medications Discontinued Medications Generic Name Dose Route Start Last Admin Trade Name Freq PRN Reason Stop Dose Admin Dextrose/Sodium Chloride 1,000 mls @ 150 mls/hr 05/28/20 08:00 05/28/20 08:50 Dextrose 5%-Normal Saline IV 150 mls/hr ASDIRECTED YANIRA Administration Ceftriaxone Sodium 2 gm/ 100 mls @ 200 mls/hr 05/28/20 11:15 05/28/20 11:23 Sodium Chloride IV 200 mls/hr Q24H YANIRA Administration Ondansetron HCl 4 mg 05/28/20 08:04 05/28/20 08:51 Zofran IVPUSH 05/28/20 08:05 4 mg ONETIME ONE Administration - Radiology Interpretation Free Text/Narrative:: 89-year-old male presents to the ED with his with sudden onset of illness about 0700 hrs. this morning. Shortly after awakening he developed chills with the shakes or Rigor's. Vomited once as well of a orange juice yellowish material. States he feels better since he vomited. Here he had a low temperature but he appeared to be slightly warm to touch on my assessment. He is an insulin-dependent diabetic type II. He self catheterizes twice daily for neurogenic bladder. Recurrent UTIs. 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 He has mitral insuf ficiency murmur as well. Clinically has crackles in both bases compatible with mild CHF. Unfortunately our BNP analyzer in the lab is not available. Routine blood cultures x2 will be obtained and a lactic acid. - Re-Assessments/Exams Free Text/Narrative Re-Assessment/Exam: 05/28/20 09:12 Hematology reveals a white count of 10.25. 91% neutrophils no bands cells reported. Hemoglobin is low at 11.3 with hematocrit of 34.7. Platelet count is low at 133,000. PT is 11.6 without an INR of 1.07. PTT is 24. Lactic acid is 1.2. Chest x-ray done portably reveals a paralyzed right hemidiaphragm with elevation. Cardiac silhouette appears to be normal. Visualized lung meza appear to be normal. 05/28/20 09:59 Chemistry reveals a sodium of 138 potassium of 4.9. Chloride 102 with a bicarb of 26. Anion gap is 14.9. BUN elevated at 36 with a creatinine of 2.1. GFR is 30 a severe stage III renal insufficiency. Glucose 113 lactic acid 1.2. Calcium is 9.0 magnesium 1.9 total bilirubin and liver function are normal. Troponin I was less than 0.017. C-reactive protein 0.2. Total protein 7.2 albumin fraction 3.7. COVID screen is negative. Waiting a urinalysis which has not yet been collected. 05/28/20 11:05 Urinalysis is turbid. It shows 3+ proteinuria and 3+ occult blood. Shows 3+ leukocyte esterase 5-10 RBCs per per field and greater than 100 white blood cells per high-power field. Urine culture ordered. 05/28/20 11:16 Discussed the findings with the patient and his . We will give him some fluids to drink make sure that his stomach is okay. I will place him on Rocephin 2 g intravenously for urinary tract infection suspect pyelonephritis. Tentatively he will be okay to go home on Omnicef 300 mg twice daily for the next 10 days. 05/28/20 11:55: Rocephin has been infused or will be done shortly. He will be discharged to home and advised follow-up with his primary care provider in 10 days time. Sooner if he is not markedly improved in 48 hours time. Urine culture is pending. Departure - Departure Time of Disposition: 11:55 Disposition: Home, Self-Care 01 Condition: Fair Clinical Impression: Upper urinary tract infection, Renal insufficiency, UTI, Urinary tract infectious disease - Discharge Information *PRESCRIPTION DRUG MONITORING PROGRAM REVIEWED*: Not Applicable *COPY OF PRESCRIPTION DRUG MONITORING REPORT IN PATIENT SVEN: Not Applicable Prescriptions: Cefdinir [Omnicef] 300 mg PO BID #20 cap Instructions: Urinary Tract Infection, Adult, [id number] Referrals: Cali Shankar MD [Primary Care Provider] - Forms: ED Department Discharge Additional Instructions: Evaluation in the emergency room today in regards to development of chills this morning and then prompted nausea and vomiting. You had a very low-grade fever when I assessed you in the emergency room. Lab test revealed only a slightly elevated white count as compared to the normal. Kidney function is maintained similar to what was found on previous exam. The urinalysis proved to be st rongly positive for infection with greater than 100 white blood cells per high- power field. A urine culture has been obtained to make sure that the organism is sensitive to the antibiotics we placed you on. First dose of antibiotic was given in the emergency room Rocephin 2 g intravenously. You will need to take Omnicef antibiotic 300 mg twice daily for the next 10 days with first tablet due tomorrow morning. Course Tylenol 650 mg every 4-6 hours if needed for any fever relief. Nausea reoccurs you should return to the emergency department for admission to the hospital. Otherwise diet as tolerated and continue all of your normal medications. Follow-up with your personal care physician in 10 days time Sepsis Event Note (ED) - Evaluation Sepsis Screening Result: No Definite Risk - Focused Exam Vital Signs: Vital Signs Temp Pulse Resp BP Pulse Ox 05/28/20 07:39 36.5 C 104 H 18 125/58 L 93 L - My Orders Last 24 Hours: My Active Orders 05/28/20 07:53 EKG Documentation Completion [RC] STAT Chest 1V Frontal [CR] Stat Blood Culture x2 Reflex Set [OM.PC] Stat 05/28/20 08:22 CULTURE BLOOD [BC] Stat 05/28/20 08:30 CULTURE BLOOD [BC] Stat 05/28/20 10:15 CULTURE URINE [RM] Stat - Assessment/Plan Last 24 Hours: My Active Orders 05/28/20 07:53 EKG Documentation Completion [RC] STAT Chest 1V Frontal [CR] Stat Blood Culture x2 Reflex Set [OM.PC] Stat 05/28/20 08:22 CULTURE BLOOD [BC] Stat 05/28/20 08:30 CULTURE BLOOD [BC] Stat 05/28/20 10:15 CULTURE URINE [RM] Stat
[2020-05-28] MEDS ORDERED: Dextrose 5%-0.9% NaCl 1,000 ML IV SCH (08:00)
[2020-05-28] MEDS ORDERED: Ondansetron 4 MG/2 ML SDV IVPUSH ONE (08:04)
[2020-05-28] MEDS ORDERED: cefTRIAXone 2 GM in Sodium Chloride 0.9% 100 ML IV SCH (11:15)
--- NOTE | 2020-05-29 09:51 | CR ---
Chest: Portable view of the chest was obtained. Comparison: Prior chest x-ray of 10/07/17. Heart size is normal. Tortuous thoracic aorta is seen. Lungs show no acute parenchymal change. Bony structures are grossly intact. Impression: 1. Nothing acute is appreciated on portable chest x-ray. Diagnostic code #2 This report was dictated in MDT
== END 2020-05-28 11:59 | disposition home or self-care (01) ==
LOC: JD.ED 07:30
DX: N39.0 Urinary tract infection, site not specified (principal); N28.9 Disorder of kidney and ureter, unspecified; I50.9 Heart failure, unspecified; K21.9 Gastro-esophageal reflux disease without esophagitis; E11.9 Type 2 diabetes mellitus without complications; E03.9 Hypothyroidism, unspecified; Z20.828 Contact with and (suspected) exposure to other viral communicable diseases; Z88.6 Allergy status to analgesic agent; Z88.5 Allergy status to narcotic agent; Z79.4 Long term (current) use of insulin
CPT/HCPCS: 36415; 71045; 80053; 81001; 83605; 83735; 84484; 85007; 85027; 85610; 85730; 86140; 87040; 87086; 87088; 87186; 93005; 96361; 96365; 96375; 99285; J0696; J2405; J7042; J7050; U0002; 93010; 99284

== ENCOUNTER 2020-07-26 19:32 | Emergency (ER) | payer MEDICARE, OTHER ==
[2020-07-26 19:44] VITALS: BP 125/83; PULSE 94
--- NOTE | 2020-07-26 20:05 | EDM.PDOC ---
ED HPI GENERAL MEDICAL PROBLEM - General Chief Complaint: Skin Complaint Stated Complaint: skin complaint Time Seen by Provider: 07/26/20 19:42 Source of Information: Reports: Patient History Limitations: Reports: No Limitations - History of Present Illness INITIAL COMMENTS - FREE TEXT/NARRATIVE: Patient is an 89-year-old male who presents to the emergency department with concerns regarding a possible infection on his right forearm. He states that he had blood drawn in [place] a few days back. When he took the Band-Aid off, the tape ripped off a part of his skin. The skin surrounding the area became red and tender. He was seen at the clinic 2 days ago by his primary care provider, Sherlyn Ochoa NP and started on Keflex for possible wound infection. The area of redness was marked with a skin marker and then a further line was also placed. He was advised to come to the emergency department if the redness should exceed beyond the points of the line. Patient is here because an area of redness and ecchymosis has formed beyond the lines. He is concerned that his infection could be worsening. He denies any fever, chills, nausea, or vomiting. - Related Data Allergies Allergy/AdvReac Type Severity Reaction Status Date / Time oxycodone [From Percocet] AdvReac Severe Other Verified 05/28/20 07:45 Home Meds: Home Meds Levothyroxine 150 mcg PO DAILY 12/06/15 [History] Rosuvastatin [Crestor] 20 mg PO DAILY 12/06/15 [History] Insulin Glarg,Human.Rec.Analog [Lantus] 24 unit SUBCUT BID 03/29/18 [History] Multivitamin [Multivitamins] 1 tab PO DAILY 03/29/18 [History] Pantoprazole Sodium 40 mg PO DAILY 03/29/18 [History] Clindamycin HCl 300 mg PO TID 7 Days #21 capsule 04/07/19 [Rx] Doxycycline [Vibramycin] 100 mg PO BID 12 Days #24 cap 04/07/19 [Rx] cephALEXin [Keflex] 1 tab PO QID 04/07/19 [History] Cefdinir [Omnicef] 300 mg PO BID #20 cap 05/28/20 [Rx] Past Medical History HEENT History: Reports: Hard of Hearing, Impaired Vision Other HEENT History: pt wears glasses Cardiovascular History: Reports: Heart Failure, Heart Murmur, High Cholesterol, Hypertension, [place], SOB on Exertion, Other (See Below) Respiratory History: Reports: None Gastrointestinal History: Reports: GERD Genitourinary History: Reports: Other (See Below) Other Genitourinary History: had prostate problems, now has bladder problems. Has a neurogenic bladder and self caths usually twice daily. Musculoskeletal History: Reports: Osteoarthritis, Osteoporosis Neurological History: Reports: None Psychiatric History: Reports: None Endocrine/Metabolic History: Reports: Diabetes, Type II, Hypothyroidism, Other (See Below) Other Endocrine/Metabolic History: thyroid issues Hematologic History: Reports: None Immunologic History: Reports: None Oncologic (Cancer) History: Reports: None Dermatologic History: Reports: Cellulitis Other Dermatologic History: current cellulitis to right knee - Infectious Disease History Infectious Disease History: Reports: None Other Infectious Disease History: patient states he has history of staph infection - Past Surgical History HEENT Surgical History: Reports: Cataract Surgery, Tonsillectomy Cardiovascular Surgical History: Reports: Valve Replacement Social & Family History - Family History Family Medical History: Noncontributory - Tobacco Use Smoking Status *Q: Never Smoker - Caffeine Use Caffeine Use: Reports: Coffee - Recreational Drug Use Recreational Drug Use: No - Living Situation & Occupation Living situation: Reports: Occupation: Retired ED ROS GENERAL - Review of Systems Review Of Systems: See Below Constitutional: Reports: No Symptoms. Denies: Fever, Chills, Weakness HEENT: Reports: No Symptoms Respiratory: Reports: No Symptoms Cardiovascular: Reports: No Symptoms Endocrine: Reports: No Symptoms GI/Abdominal: Reports: No Symptoms. Denies: Abdominal Pain, Diarrhea, Nausea, Vomiting : Reports: No Symptoms Musculoskeletal: Reports: No Symptoms Skin: Reports: Bruising (Right forearm), Lesions (Right forearm) ED EXAM, SKIN/RASH Exam: See Below Exam Limited By: No Limitations General Appearance: Alert, WD/WN, No Apparent Distress Respiratory/Chest: No Respiratory Distress, Lungs Clear, Normal Breath Sounds, No Accessory Muscle Use, Chest Non-Tender Cardiovascular: Normal Peripheral Pulses, Regular Rate, Rhythm, No Edema, No Gallop, No JVD, No Murmur, No Rub Neurological: Alert, Oriented, CN II-XII Intact, Normal Cognition, Normal Gait, Normal Reflexes, No Motor/Sensory Deficits Psychiatric: Normal Affect, Normal Mood Skin: Other (2 cm linear open area with scabbing present. Skin surrounding this lesion is light pink/near flesh colored, however the area of concern is actually ecchymosis from the venous puncture. There is a visible puncture wound surrounded by dark purple ecchymosis that gradually fades to a purplish pink area of ecchymosis. There is a visible puncture wound in the middle of the dark purple ecchymosis.) Course - Vital Signs Last Recorded V/S: Last Vital Signs Temp 97.9 F 07/26/20 19:39 Pulse 94 07/26/20 19:39 Resp 13 07/26/20 19:39 BP 125/83 07/26/20 19:39 Pulse Ox 95 07/26/20 19:39 - Orders/Labs/Meds Labs: Laboratory Tests 07/26/20 07/26/20 Range/Units 20:13 20:13 WBC 5.97 (4.23-9.07) K/mm3 RBC 3.45 L (4.63-6.08) M/mm3 Hgb 10.4 L (13.7-17.5) gm/dl Hct 30.9 L (40.1-51.0) % MCV 89.6 (79.0-92.2) fl MCH 30.1 (25.7-32.2) pg MCHC 33.7 (32.2-35.5) g/dl RDW Std Deviation 42.3 (35.1-43.9) fL Plt Count 142 L (163-337) K/mm3 MPV 10.9 (9.4-12.3) fl Neut % (Auto) 65.0 (34.0-67.9) % Lymph % (Auto) 20.1 L (21.8-53.1) % Story % (Auto) 8.0 (5.3-12.2) % Eos % (Auto) 5.9 (0.8-7.0) Baso % (Auto) 0.8 (0.1-1.2) % Neut # (Auto) 3.88 (1.78-5.38) K/mm3 Lymph # (Auto) 1.20 L (1.32-3.57) K/mm3 Story # (Auto) 0.48 (0.30-0.82) K/mm3 Eos # (Auto) 0.35 (0.04-0.54) K/mm3 Baso # (Auto) 0.05 (0.01-0.08) K/mm3 Sodium 131 L (136-145) mEq/L Potassium 4.6 (3.5-5.1) mEq/L Chloride 98 (98-107) mEq/L Carbon Dioxide 26 (21-32) mEq/L Anion Gap 11.6 (5-15) BUN 33 H (7-18) mg/dL Creatinine 2.2 H (0.7-1.3) mg/dL Est Cr Clr Drug Dosing 21.35 mL/min Estimated GFR (MDRD) 28 (>60) mL/min BUN/Creatinine Ratio 15.0 (14-18) Glucose 304 H (83-115) mg/dL Calcium 8.6 (8.5-10.1) mg/dL Total Bilirubin 0.8 (0.2-1.0) mg/dL AST 14 L (15-37) U/L ALT 24 (16-63) U/L Alkaline Phosphatase 99 (46-116) U/L C-Reactive Protein 2.9 H* (<1.0) mg/dL Total Protein 6.8 (6.4-8.2) g/dl Albumin 3.4 (3.4-5.0) g/dl Globulin 3.4 gm/dL Albumin/Globulin Ratio 1.0 (1-2) - Re-Assessments/Exams Free Text/Narrative Re-Assessment/Exam: Patient is an 89-year-old male who presents to the emergency department with concerns that he may be having a worsening wound infection on his right forearm. He had blood drawn in [place] a few days back. Patient states when he took the Band-Aid off a portion of his skin ripped off with a Band-Aid. On exam, he does have a scab on his right forearm with some light pink redness surrounding the lesion. Slightly distal to this, there is an obvious puncture wound overlying a large vein on his forearm. This area is dark purple in color and very slightly swollen. It fades medially into a more pinkish-purple area of ecchymosis. It appears that he may still be oozing blood below the surface of his skin the venous puncture which is why this area of ecchymosis is worsening. The actual redness surrounding the wound does not appear to be worse than the area that was originally marked; however, I have ordered a CBC and a CMP to evaluate. 07/26/20 21:57 Hematology was grossly unremarkable with exception of his sodium low at 131 and creatinine elevated at 2.2, however in review of patient's past lab values, as are normal for him. WBCs are 5.97. There is not appear to be an active infection on his forearm. The skin surrounding the lesion is near flesh- colored, however there is a considerable hematoma distal to this. I have applied bacitracin ointment to the open area. Was then covered by nonstick Telfa and a co-band pressure dressing was applied. I did send the remaining Coban home with the patient so that if he needs to change it he has some. Discussed symptoms to watch for that would indicate worsening infection. He verbalized understanding. Discharge instructions as documented. Departure - Departure Time of Disposition: 21:59 Disposition: Home, Self-Care 01 Condition: Good Clinical Impression: Visit for wound check, Hematoma - Discharge Information *PRESCRIPTION DRUG MONITORING PROGRAM REVIEWED*: No *COPY OF PRESCRIPTION DRUG MONITORING REPORT IN PATIENT SVEN: No Referrals: Cali Shankar MD [Primary Care Provider] - Forms: ED Department Discharge Additional Instructions: You were seen in the emergency department with concern of a possible worsening infection on your right forearm. Blood work was completed and found to be normal. On exam, you have a hematoma forming which is bleeding under the skin, however there are no signs of worsening infection. A pressure dressing has been applied. Recommend that you leave this on for the next 24 hours. If it feels like it is too tight, you may remove it and reapply with a Coban that was sent home with you. Continue taking your Keflex as previously prescribed. If you should experience any worsening of swelling, redness, warmth, or development of fever, chills, nausea, or vomiting, please return to the emergency department. Sepsis Event Note (ED) - Evaluation Sepsis Screening Result: No Definite Risk - Focused Exam Vital Signs: Vital Signs Temp Pulse Resp BP Pulse Ox 07/26/20 19:39 97.9 F 94 13 125/83 95
== END 2020-07-26 22:07 | disposition home or self-care (01) ==
LOC: JD.ED 19:32
DX: M96.840 Postprocedural hematoma of a musculoskeletal structure following a musculoskeletal system procedure (principal); I11.0 Hypertensive heart disease with heart failure; I50.9 Heart failure, unspecified; E78.00 Pure hypercholesterolemia, unspecified; I25.2 Old myocardial infarction; K21.9 Gastro-esophageal reflux disease without esophagitis; M19.90 Unspecified osteoarthritis, unspecified site; E11.9 Type 2 diabetes mellitus without complications; E03.9 Hypothyroidism, unspecified; Z88.5 Allergy status to narcotic agent; Z79.4 Long term (current) use of insulin; Z79.899 Other long term (current) drug therapy
CPT/HCPCS: 36415; 80053; 85025; 86140; 99282; 99283

== ENCOUNTER 2020-11-19 08:58 | Emergency (ER) | payer MEDICARE, OTHER ==
[2020-11-19 09:16] VITALS: BP 137/59; PULSE 74
--- NOTE | 2020-11-19 10:16 | CR ---
Right hand: 3 views of the right hand were obtained. Comparison: No previous study. Scattered degenerative changes are seen within the wrist as well as fingers. Bony structures are osteopenic. Slight vascular calcification is noted within the wrist. Slight deformity is noted within the distal fifth metacarpal compatible with old healed fracture. No definite acute fracture or dislocation is appreciated. Small foreign body is noted within the second finger at the level of the DIP joint. Impression: 1. Degenerative change, osteopenia and vascular calcification. Other findings as noted above. 2. Nothing acute is definitely appreciated. Diagnostic code #2
--- NOTE | 2020-11-19 11:13 | EDM.PDOC ---
ED HPI GENERAL MEDICAL PROBLEM - General Chief Complaint: Upper Extremity Injury/Pain Stated Complaint: FALL-SWOLLEN R HAND/WRIST Time Seen by Provider: 11/19/20 10:58 Source of Information: Reports: Patient, RN Notes Reviewed History Limitations: Reports: No Limitations - History of Present Illness INITIAL COMMENTS - FREE TEXT/NARRATIVE: Patient is an 89-year-old male presenting to the emergency department with complaints of pain and swelling to his right proximal hand and wrist. States on Friday he rolled out of bed and injured it. He has had some minimal pain since then, however today developed some swelling. He has full use of the hand full range of motion of the wrist. He has not taken anything for pain. Right Wrist Pain Score (Numeric/FACES): 3 - Related Data Allergies Allergy/AdvReac Type Severity Reaction Status Date / Time oxycodone [From Percocet] AdvReac Severe Other Verified 11/19/20 09:16 Home Meds: Home Meds Levothyroxine 150 mcg PO DAILY 12/06/15 [History] Rosuvastatin [Crestor] 20 mg PO DAILY 12/06/15 [History] Insulin Glarg,Human.Rec.Analog [Lantus] 24 unit SUBCUT BID 03/29/18 [History] Multivitamin [Multivitamins] 1 tab PO DAILY 03/29/18 [History] Pantoprazole Sodium 40 mg PO DAILY 03/29/18 [History] cephALEXin [Keflex] 1 tab PO QID 04/07/19 [History] Dulaglutide [Trulicity] 1 injection SQ WEEKLY 07/26/20 [History] Past Medical History HEENT History: Reports: Hard of Hearing, Impaired Vision Other HEENT History: pt wears glasses Cardiovascular History: Reports: Heart Failure, Heart Murmur, High Cholesterol, Hypertension, [place], SOB on Exertion, Other (See Below) Respiratory History: Reports: None Gastrointestinal History: Reports: GERD Genitourinary History: Reports: Other (See Below) Other Genitourinary History: had prostate problems, now has bladder problems. Has a neurogenic bladder and self caths usually twice daily. Musculoskeletal History: Reports: Osteoarthritis, Osteoporosis Neurological History: Reports: None Psychiatric History: Reports: None Endocrine/Metabolic History: Reports: Diabetes, Type II, Hypothyroidism, Other (See Below) Other Endocrine/Metabolic History: thyroid issues Hematologic History: Reports: None Immunologic History: Reports: None Oncologic (Cancer) History: Reports: None Dermatologic History: Reports: Cellulitis Other Dermatologic History: current cellulitis to right knee - Infectious Disease History Infectious Disease History: Reports: None Other Infectious Disease History: patient states he has history of staph infection - Past Surgical History HEENT Surgical History: Reports: Cataract Surgery, Tonsillectomy Cardiovascular Surgical History: Reports: Valve Replacement Social & Family History - Family History Family Medical History: No Pertinent Family History - Tobacco Use Tobacco Use Status *Q: Never Tobacco User - Caffeine Use Caffeine Use: Reports: Coffee - Living Situation & Occupation Living situation: Reports: Occupation: Retired Review of Systems - Review of Systems Review Of Systems: Comprehensive ROS is negative, except as noted in HPI. ED EXAM, GENERAL - Physical Exam Exam: See Below Exam Limited By: No Limitations General Appearance: Alert, WD/WN, No Apparent Distress Respiratory/Chest: No Respiratory Distress, Lungs Clear, Normal Breath Sounds, No Accessory Muscle Use, Chest Non-Tender Cardiovascular: Normal Peripheral Pulses, Regular Rate, Rhythm, No Edema, No Gallop, No JVD, No Murmur, No Rub Extremities: Other (Mild edema to the right wrist. He does have full range of motion of the wrist and hand. States the swelling has improved since this morning.) Neurological: Alert, Oriented, CN II-XII Intact, Normal Cognition, Normal Gait, Normal Reflexes, No Motor/Sensory Deficits Psychiatric: Normal Affect, Normal Mood Skin Exam: Warm, Dry, Intact, Normal Color, No Rash Course - Vital Signs Last Recorded V/S: Last Vital Signs Temp 97.4 F 11/19/20 09:14 Pulse 74 11/19/20 09:14 Resp 16 11/19/20 09:14 BP 137/59 L 11/19/20 09:14 Pulse Ox 98 11/19/20 09:14 - Re-Assessments/Exams Free Text/Narrative Re-Assessment/Exam: Patient is an 89-year-old male presenting to the emergency department with complaints of pain and mild swelling to his right wrist after falling on Friday evening. X-rays were completed per standing order by nursing staff. Radiology read shows no acute fractures to the hand or wrist. We will provide patient with a Velcro wrist splint. Recommend intermittent icing. Discussed that if pain continues after 1 week, he should follow-up in the clinic. Discharge instructions as documented. Departure - Departure Time of Disposition: 11:14 Disposition: Home, Self-Care 01 Condition: Good Clinical Impression: Contusion of wrist, right Qualifiers: Encounter type: initial encounter Qualified Code(s): S60.211A - Contusion of right wrist, initial encounter - Discharge Information *PRESCRIPTION DRUG MONITORING PROGRAM REVIEWED*: No *COPY OF PRESCRIPTION DRUG MONITORING REPORT IN PATIENT SVEN: No Instructions: Contusion, [id number] Referrals: Cali Shankar MD [Primary Care Provider] - Additional Instructions: You were seen in the emergency department today for pain and swelling to your right wrist after a fall on Friday. X-rays were completed and showed no fracture. You have been provided with a removable Velcro splint. Wear this over the course of the next week as needed for comfort. Recommend intermittent icing of the joint. You may use Tylenol as needed for discomfort. If you are still having significant discomfort after about 1 week, recommend follow-up in the clinic. Return to ER for any new or worsening symptoms of concern. Sepsis Event Note (ED) - Evaluation Sepsis Screening Result: No Definite Risk - Focused Exam Vital Signs: Vital Signs Temp Pulse Resp BP Pulse Ox 11/19/20 09:14 97.4 F 74 16 137/59 L 98
== END 2020-11-19 11:38 | disposition home or self-care (01) ==
LOC: JD.ED 08:58
DX: S60.211A Contusion of right wrist, initial encounter (principal); I11.0 Hypertensive heart disease with heart failure; I50.9 Heart failure, unspecified; E78.00 Pure hypercholesterolemia, unspecified; K21.9 Gastro-esophageal reflux disease without esophagitis; I25.2 Old myocardial infarction; E11.9 Type 2 diabetes mellitus without complications; E03.9 Hypothyroidism, unspecified; Z88.5 Allergy status to narcotic agent; Z79.4 Long term (current) use of insulin; Z79.899 Other long term (current) drug therapy; W06.XXXA Fall from bed, initial encounter
CPT/HCPCS: 73120-26-RT; 73120-RT; 99282; 99283-25

== ENCOUNTER 2020-12-20 13:09 | Emergency (ER) | payer MEDICARE, OTHER ==
[2020-12-20 13:25] VITALS: BP 152/69; PULSE 80
--- NOTE | 2020-12-20 13:47 | EDM.PDOC ---
ED HPI GENERAL MEDICAL PROBLEM - General Chief Complaint: Lower Extremity Injury/Pain Stated Complaint: LEFT KNEE TROUBLE WALKING Time Seen by Provider: 12/20/20 13:21 Source of Information: Reports: Patient History Limitations: Reports: No Limitations - History of Present Illness INITIAL COMMENTS - FREE TEXT/NARRATIVE: 89-year-old male presents to the emergency department with complaints of left knee giving out. Patient states he woke up this morning and was walking around with no issues and after that has been unable to ambulate due to left knee "giving out ". Patient denies any recent trauma or any complaints of pain or discomfort associated with this. Patient has no other neurologic defects or deficits. He states he is having difficulty going from sitting to standing and then ambulating as he is just unable to bear weight on the side. Onset: Today, Sudden - Related Data Allergies Allergy/AdvReac Type Severity Reaction Status Date / Time oxycodone [From Percocet] AdvReac Severe Other Verified 12/20/20 13:25 Home Meds: Home Meds Levothyroxine 150 mcg PO DAILY 12/06/15 [History] Rosuvastatin [Crestor] 20 mg PO DAILY 12/06/15 [History] Insulin Glarg,Human.Rec.Analog [Lantus] 22 unit SUBCUT BEDTIME 03/29/18 [History] Multivitamin [Multivitamins] 1 tab PO DAILY 03/29/18 [History] Pantoprazole Sodium 40 mg PO DAILY 03/29/18 [History] Dulaglutide [Trulicity] 1 injection SQ WEEKLY 07/26/20 [History] Past Medical History HEENT History: Reports: Hard of Hearing, Impaired Vision Other HEENT History: pt wears glasses Cardiovascular History: Reports: Heart Failure, Heart Murmur, High Cholesterol, Hypertension, [place], SOB on Exertion, Other (See Below) Respiratory History: Reports: None Gastrointestinal History: Reports: GERD Genitourinary History: Reports: Other (See Below) Other Genitourinary History: had prostate problems, now has bladder problems. Has a neurogenic bladder and self caths usually twice daily. Musculoskeletal History: Reports: Osteoarthritis, Osteoporosis Neurological History: Reports: None Psychiatric History: Reports: None Endocrine/Metabolic History: Reports: Diabetes, Type II, Hypothyroidism, Other (See Below) Other Endocrine/Metabolic History: thyroid issues Hematologic History: Reports: None Immunologic History: Reports: None Oncologic (Cancer) History: Reports: None Dermatologic History: Reports: Cellulitis Other Dermatologic History: current cellulitis to right knee - Infectious Disease History Infectious Disease History: Reports: None Other Infectious Disease History: patient states he has history of staph inf ection - Past Surgical History HEENT Surgical History: Reports: Cataract Surgery, Tonsillectomy Cardiovascular Surgical History: Reports: Valve Replacement Social & Family History - Family History Family Medical History: No Pertinent Family History - Tobacco Use Tobacco Use Status *Q: Never Tobacco User - Caffeine Use Caffeine Use: Reports: Coffee, Soda - Recreational Drug Use Recreational Drug Use: No - Living Situation & Occupation Living situation: Reports: Occupation: Retired Review of Systems - Review of Systems Review Of Systems: See Below Constitutional: Reports: No Symptoms Eyes: Reports: No Symptoms Ears: Reports: No Symptoms Nose: Reports: No Symptoms Mouth/Throat: Reports: No Symptoms Respiratory: Reports: No Symptoms Cardiovascular: Reports: No Symptoms GI/Abdominal: Reports: No Symptoms Genitourinary: Reports: No Symptoms Musculoskeletal: Reports: Other (left knee weakness) Skin: Reports: No Symptoms Neurological: Reports: No Symptoms Psychiatric: Reports: No Symptoms ED EXAM, GENERAL - Physical Exam Exam: See Below Exam Limited By: No Limitations General Appearance: Alert, WD/WN, No Apparent Distress Eye Exam: Bilateral Eye: PERRL Ears: Hearing Grossly Normal Nose: Normal Inspection Throat/Mouth: Normal Inspection, Normal Voice, No Airway Compromise Head: Atraumatic, Normocephalic Neck: Normal Inspection, Supple, Non-Tender, Full Range of Motion Respiratory/Chest: No Respiratory Distress Cardiovascular: Normal Peripheral Pulses Peripheral Pulses: 2+: Radial (L), Radial (R), Dorsalis Pedis (L), Dorsalis Pedis (R) (Male) Exam: Deferred Rectal (Males) Exam: Deferred Back Exam: Normal Inspection, Full Range of Motion Extremities: Normal Inspection, Normal Range of Motion, Non-Tender, No Pedal Edema, Normal Capillary Refill, Other (denies pain, tristen and drawer test are negative, varus and valgus tests are negative as well, neuro exam is also unremarkable) Neurological: Alert, Oriented, Normal Cognition, No Motor/Sensory Deficits Psychiatric: Normal Affect, Normal Mood Lymphatic: No Adenopathy Course - Vital Signs Text/Narrative:: 89-year-old male presents with left lower extremity weakness. Specifically in the left knee. Patient states that today he has been unable to bear weight and ambulate as his knee has been giving out on him. Patient denies any complaints of pain or trauma associated with this. Upon assessment there is no deformity/abnormalities noted. There is no redness warmth or swelling noted that would suggest gout or pseudogout. Neurologic assessment was unremarkable. Patient does have significant weakness when attempting to lift his left leg off the bed against resistance however foot push and pull is equal. I have ordered x-rays of the left knee. Last Recorded V/S: Last Vital Signs Temp 97.0 F 12/20/20 13:21 Pulse 80 12/20/20 13:21 Resp 18 12/20/20 13:21 BP 152/69 H 12/20/20 13:21 Pulse Ox 98 12/20/20 13:21 - Orders/Labs/Meds Orders: Active Orders 24 hr Category Date Time Status DME for Discharge [COMM] Stat Oth 12/20/20 14:20 Ordered - Re-Assessments/Exams Free Text/Narrative Re-Assessment/Exam: 12/20/20 14:26 4 views of left knee radiologist impression: 1. Fracture involving the lateral side of the patella. No significant displacement is seen. 2. Degenerative changes noted. 3. Vascular calcification. Pt will have a knee immobilizer placed and nursing staff will attempt to walk him. Will need to have follow up with Dr. Jimenez. 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 X-ray does reveal that you do have a fracture on your kneecap however this should not be affecting the strength of your leg/knee. It is likely you have some ligament damage within your knee. You have been given an immobilizer brace which should be used whenever you are up ambulating as this will likely help to support your knee. Recommend that you follow-up with Dr. Jimenez, orthopedic surgeon at [facility]. Phone number is [phone]. They will be phoning you to schedule your appointment. Should your condition worsen or change please return to the emergency department. Sepsis Event Note (ED) - Evaluation Sepsis Screening Result: No Definite Risk - Focused Exam Vital Signs: Vital Signs Temp Pulse Resp BP Pulse Ox 12/20/20 13:21 97.0 F 80 18 152/69 H 98 - My Orders Last 24 Hours: My Active Orders 12/20/20 14:20 DME for Discharge [COMM] Stat - Assessment/Plan Last 24 Hours: My Active Orders 12/20/20 14:20 DME for Discharge [COMM] Stat
--- NOTE | 2020-12-20 14:31 | CR ---
Left knee: 4 views of the left knee were obtained. Comparison: No prior left knee study is available. Mild narrowing of the medial joint compartment is seen. Chondrocalcinosis is noted within the medial meniscus. Vascular calcification is noted. Fracture is seen within the patella along the lateral side. Mild narrowing is seen throughout the patellofemoral joint. Impression: 1. Fracture involving the lateral side of the patella. No significant displacement is seen. 2. Degenerative change as noted above. 3. Vascular calcification. Diagnostic code #3
== END 2020-12-20 15:11 | disposition home or self-care (01) ==
LOC: JD.ED 13:09
DX: M23.52 Chronic instability of knee, left knee (principal); I11.0 Hypertensive heart disease with heart failure; I50.9 Heart failure, unspecified; I25.2 Old myocardial infarction; E78.00 Pure hypercholesterolemia, unspecified; K21.9 Gastro-esophageal reflux disease without esophagitis; E11.9 Type 2 diabetes mellitus without complications; E03.9 Hypothyroidism, unspecified; Z88.5 Allergy status to narcotic agent; Z79.4 Long term (current) use of insulin; Z79.899 Other long term (current) drug therapy
CPT/HCPCS: 73564-26-LT; 73564-LT; 99282; 99283-25

== ENCOUNTER 2022-01-26 15:12 | Inpatient (IN) | payer MEDICARE, OTHER ==
[2022-01-26] MEDS ORDERED: Sodium Chloride 0.9% 10 ML Syringe FLUSH PRN (15:25)
[2022-01-26 16:31] LABS: CORONAVIRUS COVID-19 NAA NEGATIVE (NEGATIVE)
[2022-01-26] MEDS ORDERED: Sodium Chloride 0.9% 1,000 ML IV ONE (16:58)
[2022-01-26] MEDS ORDERED: cefTRIAXone 2 GM in Sodium Chloride 0.9% 100 ML IV ONE (17:28)
[2022-01-26] MEDS ORDERED: Acetaminophen 325 MG Tab PO PRN (17:38)
[2022-01-26] MEDS ORDERED: Temazepam 7.5 MG Cap PO PRN (17:38)
[2022-01-26] MEDS ORDERED: Docusate Sodium 100 MG Cap PO PRN (17:38)
[2022-01-26] MEDS ORDERED: Ondansetron 4 MG Tab.DIS PO PRN (17:38)
[2022-01-26] MEDS: Heparin Sodium 5,000 Units/ML Vial SUBCUT SCH (20:05)
[2022-01-26] MEDS: Insulin Regular, Human 100 Units/ML 3 ML Vial SUBCUT SCH (20:57)
[2022-01-27] MEDS: Heparin Sodium 5,000 Units/ML Vial SUBCUT SCH ×3 (03:00→17:40)
[2022-01-27] MEDS: Insulin Regular, Human 100 Units/ML 3 ML Vial SUBCUT SCH ×3 (09:22→19:00)
[2022-01-27] MEDS: Levothyroxine 50 MCG Tab PO SCH (09:39)
[2022-01-27] MEDS: Bumetanide 1 MG Tab PO SCH (09:40)
[2022-01-27] MEDS: Losartan 25 MG Tab PO SCH (09:40)
[2022-01-27] MEDS: Magnesium Oxide 400 MG Tab PO SCH (09:40)
[2022-01-27] MEDS: Vitamin B Complex With Vitamin C Cap PO SCH (09:40)
[2022-01-27] MEDS: Aspirin 81 MG Tab.EC PO SCH (09:40)
[2022-01-27] MEDS: Sodium Bicarbonate 650 MG Tab PO SCH ×2 (09:40→21:32)
[2022-01-27] MEDS: Insulin Glargine,Hum.Rec.Anlog 100 UNIT/ML 3 ML Pen SUBCUT SCH (09:41)
[2022-01-27] MEDS: Pantoprazole 40 MG Tab.CR PO SCH (09:41)
[2022-01-27] MEDS ORDERED: Clopidogrel 75 MG Tab PO ONE ×2 (12:00→14:30)
[2022-01-27] MEDS: Rosuvastatin 10 MG Tab PO SCH (17:40)
[2022-01-27] MEDS: cefTRIAXone 1 GM in Sodium Chloride 0.9% 100 ML IV SCH (17:40)
[2022-01-27] MEDS ORDERED: cefTRIAXone 1 GM in Sodium Chloride 0.9% 100 ML IV SCH (17:45)
[2022-01-27] MEDS ORDERED: SILODOSIN 8 MG PO SCH (18:00)
[2022-01-28] MEDS: Heparin Sodium 5,000 Units/ML Vial SUBCUT SCH ×3 (02:55→18:03)
[2022-01-28] MEDS ORDERED: Levothyroxine 150 MCG Tab PO SCH (06:00)
[2022-01-28] MEDS: Levothyroxine 50 MCG Tab PO SCH (06:28)
[2022-01-28] MEDS: Pantoprazole 40 MG Tab.CR PO SCH (06:28)
[2022-01-28] MEDS: Bumetanide 1 MG Tab PO SCH (08:37)
[2022-01-28] MEDS: Insulin Glargine,Hum.Rec.Anlog 100 UNIT/ML 3 ML Pen SUBCUT SCH (08:37)
[2022-01-28] MEDS: Magnesium Oxide 400 MG Tab PO SCH (08:37)
[2022-01-28] MEDS: Vitamin B Complex With Vitamin C Cap PO SCH (08:37)
[2022-01-28] MEDS: Losartan 25 MG Tab PO SCH (08:37)
[2022-01-28] MEDS: Aspirin 81 MG Tab.EC PO SCH (08:37)
[2022-01-28] MEDS: Sodium Bicarbonate 650 MG Tab PO SCH ×2 (08:39→20:45)
[2022-01-28] MEDS: Insulin Regular, Human 100 Units/ML 3 ML Vial SUBCUT SCH ×3 (08:55→18:05)
[2022-01-28] MEDS: Rosuvastatin 10 MG Tab PO SCH (18:03)
[2022-01-28] MEDS: cefTRIAXone 1 GM in Sodium Chloride 0.9% 100 ML IV SCH (18:04)
[2022-01-29] MEDS: Heparin Sodium 5,000 Units/ML Vial SUBCUT SCH ×2 (01:06→09:41)
[2022-01-29] MEDS: Levothyroxine 50 MCG Tab PO SCH (06:05)
[2022-01-29] MEDS: Pantoprazole 40 MG Tab.CR PO SCH (06:05)
[2022-01-29] MEDS: Aspirin 81 MG Tab.EC PO SCH (09:38)
[2022-01-29] MEDS: Bumetanide 1 MG Tab PO SCH (09:39)
[2022-01-29] MEDS: Vitamin B Complex With Vitamin C Cap PO SCH (09:39)
[2022-01-29] MEDS: Sodium Bicarbonate 650 MG Tab PO SCH (09:39)
[2022-01-29] MEDS: Magnesium Oxide 400 MG Tab PO SCH (09:40)
[2022-01-29] MEDS: Insulin Glargine,Hum.Rec.Anlog 100 UNIT/ML 3 ML Pen SUBCUT SCH (09:41)
[2022-01-29] MEDS: Losartan 25 MG Tab PO SCH (09:44)
[2022-01-29] MEDS: Insulin Regular, Human 100 Units/ML 3 ML Vial SUBCUT SCH ×2 (09:45→14:13)
[2022-01-29 14:08] VITALS: BP 152/86; PULSE 70
[2023-01-30] MEDS ORDERED: Clopidogrel 75 MG Tab PO SCH (09:00)
== END 2022-01-29 13:10 | disposition home or self-care (01) | DRG 194 ==
LOC: JD.ED 15:12 → JD.MS 17:30
PROVIDERS: ADMIT Internal Medicine; ATTEND Internal Medicine
DX: J18.9 Pneumonia, unspecified organism (principal); I48.91 Unspecified atrial fibrillation; N18.4 Chronic kidney disease, stage 4 (severe); I13.0 Hypertensive heart and chronic kidney disease with heart failure and stage 1 through stage 4 chronic kidney disease, or unspecified chronic kidney disease; I50.9 Heart failure, unspecified; I50.32 Chronic diastolic (congestive) heart failure; R31.9 Hematuria, unspecified; R80.9 Proteinuria, unspecified; Z96.0 Presence of urogenital implants; E11.22 Type 2 diabetes mellitus with diabetic chronic kidney disease; Z20.822 Contact with and (suspected) exposure to COVID-19; E11.9 Type 2 diabetes mellitus without complications; Z79.82 Long term (current) use of aspirin; E07.9 Disorder of thyroid, unspecified; Z88.8 Allergy status to other drugs, medicaments and biological substances; Z79.890 Hormone replacement therapy; Z79.4 Long term (current) use of insulin; Z79.899 Other long term (current) drug therapy; H91.90 Unspecified hearing loss, unspecified ear; H54.7 Unspecified visual loss; E78.00 Pure hypercholesterolemia, unspecified; I25.2 Old myocardial infarction; K21.9 Gastro-esophageal reflux disease without esophagitis; N31.9 Neuromuscular dysfunction of bladder, unspecified; M19.90 Unspecified osteoarthritis, unspecified site; M81.0 Age-related osteoporosis without current pathological fracture; E03.9 Hypothyroidism, unspecified; Z90.89 Acquired absence of other organs; Z98.49 Cataract extraction status, unspecified eye; Z79.01 Long term (current) use of anticoagulants; Z95.2 Presence of prosthetic heart valve
CPT/HCPCS: 0240U; 36415; 71045; 80053; 81001; 82947; 83605; 83735; 83880; 84484; 85007; 85025; 85027; 85610; 86140; 87040; 87641; 93005; 99285; 93010; A9270-GY; J0696; J1644; J1815-GY; J7030

== ENCOUNTER 2022-05-15 13:23 | Emergency (ER) | payer MEDICARE, OTHER ==
[2022-05-15 13:34] VITALS: BP 146/85; PULSE 81
[2022-05-15] MEDS ORDERED: Sodium Chloride 0.9% 1,000 ML IV SCH (14:15)
[2022-05-15] MEDS ORDERED: Ondansetron 4 MG/2 ML SDV IVPUSH ONE (14:15)
[2022-05-15] MEDS ORDERED: Sodium Chloride 0.9% 10 ML Syringe FLUSH PRN (14:15)
== END 2022-05-15 17:30 | disposition home or self-care (01) ==
LOC: JD.ED 13:23
DX: T83.010A Breakdown (mechanical) of cystostomy catheter, initial encounter (principal); R55 Syncope and collapse; I13.0 Hypertensive heart and chronic kidney disease with heart failure and stage 1 through stage 4 chronic kidney disease, or unspecified chronic kidney disease; E11.22 Type 2 diabetes mellitus with diabetic chronic kidney disease; N18.4 Chronic kidney disease, stage 4 (severe); E78.00 Pure hypercholesterolemia, unspecified; I50.9 Heart failure, unspecified; I25.2 Old myocardial infarction; M19.90 Unspecified osteoarthritis, unspecified site; E03.9 Hypothyroidism, unspecified; K21.9 Gastro-esophageal reflux disease without esophagitis; Z88.5 Allergy status to narcotic agent; Z79.82 Long term (current) use of aspirin; Z79.899 Other long term (current) drug therapy; Z79.02 Long term (current) use of antithrombotics/antiplatelets; Z79.4 Long term (current) use of insulin
CPT/HCPCS: 36415; 51705; 74176; 80053; 84484; 85025; 93005; 96361; 96374; 99285; J2405; J3490; J7030